=== PATIENT | female | born 1970 | race Caucasian/White ===

== ENCOUNTER 2017-03-30 05:55 | Day surgery (SDC) | payer OTHER ==
[~2017-03-30 05:55] MED LIST: LACTATED RINGER'S 1,000 ML IV*
[2017-03-30] MEDS ORDERED: ATROPINE 1 MG/10 ML SYRINGE IV (06:30)
[2017-03-30] MEDS ORDERED: MIDAZOLAM 1 MG/ML 2 ML INJ IV (06:30)
[2017-03-30] MEDS ORDERED: HYDROmorphONE (0.2 MG/ML) 10ML SYG IV ×3 (06:30)
[2017-03-30] MEDS ORDERED: hydrALAzine 20 MG INJ IV (06:30)
[2017-03-30] MEDS ORDERED: EPHEDrine SULFATE 50 MG/5 ML SYG IV (06:30)
[2017-03-30] MEDS ORDERED: MEPERIDINE 25 MG INJ IV (06:30)
[2017-03-30] MEDS ORDERED: FENTAnyl 50 MCG/ML VIAL IV (06:30)
[2017-03-30] MEDS ORDERED: OXYCODONE/ACETAMINOPHEN (5/325) TAB PO ×2 (06:30)
[2017-03-30] MEDS ORDERED: LABETALOL HCL 20MG INJ IV (06:30)
[2017-03-30] MEDS ORDERED: DIPHENHYDRAMINE 50 MG INJ IV (06:30)
[2017-03-30] MEDS ORDERED: morphine (1 MG/ML) 10ML SYRINGE IV ×3 (06:30)
[2017-03-30] MEDS ORDERED: GLYCOPYRROLATE 1 MG INJ (06:31)
[2017-03-30] MEDS ORDERED: LIDOCAINE 2% (SDV) 5 ML INJ (06:31)
[2017-03-30] MEDS ORDERED: FENTAnyl 50 MCG/ML VIAL (06:32)
[2017-03-30] MEDS ORDERED: ROCURONIUM 50 MG INJ (06:32)
[2017-03-30] MEDS ORDERED: NEOSTIGMINE 3 MG/3 ML SYRINGE (06:32)
[2017-03-30] MEDS ORDERED: PROPOFOL 20 ML (06:32)
[2017-03-30] MEDS ORDERED: MIDAZOLAM 1 MG/ML 2 ML INJ (06:32)
[2017-03-30] MEDS ORDERED: DEXAMETHASONE 4 MG/ML 1 ML INJ (06:32)
[2017-03-30] MEDS ORDERED: ONDANSETRON 4 MG INJ (06:33)
[2017-03-30] MEDS ORDERED: SUCCINYLCHOLINE CHLORIDE 100 MG/5 ML SYG IV (07:00)
[2017-03-30] MEDS ORDERED: CEFAZOLIN 1 GM INJ (07:00)
[2017-03-30] MEDS ORDERED: LABETALOL HCL 20MG INJ (08:11)
[2017-03-30] MEDS ORDERED: ALBUTEROL 0.083% (NEB) 2.5 MG/3 ML AMP (09:02)
[2017-03-30] MEDS: FENTAnyl 50 MCG/ML VIAL IV ×2 (09:11→09:36)
[2017-03-30] MEDS: ONDANSETRON 4 MG INJ IV (09:11)
[2017-03-30] MEDS: ALBUTEROL 0.083% (NEB) 2.5 MG/3 ML AMP HHN (09:19)
== END 2017-03-30 11:03 | disposition home or self-care (01) ==
LOC: SDS 05:55
DX: N92.0 Excessive and frequent menstruation with regular cycle (principal); E11.9 Type 2 diabetes mellitus without complications; I10 Essential (primary) hypertension; E78.5 Hyperlipidemia, unspecified; E66.01 Morbid (severe) obesity due to excess calories; Z68.41 Body mass index [BMI] 40.0-44.9, adult
CPT/HCPCS: 58558; 82962; 86850; 86900; 86901; 88305; 94664

== ENCOUNTER 2017-05-10 21:08 | Emergency (ER) | payer OTHER ==
[2017-05-11] MEDS: morphine 4 MG/ML VIAL IV (01:23)
[2017-05-11] MEDS: ONDANSETRON 4 MG INJ IV (01:23)
[2017-05-11] MEDS: SOD CHLORIDE 0.9% 1,000 ML IV (01:23)
[2017-05-11 01:53] LABS: ADD MAN DIFF? NO
[2017-05-11 01:55] LABS: WHITE BLOOD COUNT 10.7 10^3/ul (4.8-10.8)
[2017-05-11 01:55] LABS: ABNORMAL IP MESSAGE 1; BASOPHILS % 0.4 % (0.0-2.0); EOSINOPHILS # 0.1 10^3/ul (0.0-0.5); EOSINOPHILS % 1.1 % (0.0-7.0); HEMATOCRIT 27.6 % (37.0-47.0); HEMOGLOBIN 7.3 g/dl (12.0-16.0); LYMPHOCYTES # 2.7 10^3/ul (0.8-2.9); MEAN CORPUSCULAR HGB CONC 26.4 g/dl (32.0-37.0); MEAN CORPUSCULAR VOLUME 60.7 fl (82.0-101.0); MONOCYTE # 0.5 10^3/ul (0.3-0.9); MONOCYTES % 4.5 % (0.0-11.0); NEUTROPHIL # 7.4 10^3/ul (1.6-7.5); NEUTROPHILS % 68.6 % (39.0-77.0); NUCLEATED RED BLOOD CELLS% 0.2 /100WBC (0.0-0.0); PLATELET COUNT 284 10^3/UL (140-415); RED BLOOD COUNT 4.55 10^6/ul (4.20-5.40); RED CELL DISTRIBUTION WIDTH 19.2 % (11.5-14.5)
[2017-05-11 01:57] LABS: POSITIVE DIFF @See below
[2017-05-11 02:12] LABS: ASPARTATE AMINO TRANSFERASE 16 IU/L (15-46); BLOOD UREA NITROGEN 14 mg/dl (7-20); CHLORIDE 103 mmol/L (97-110); POTASSIUM 4.3 mmol/L (3.5-5.1); SODIUM 143 mmol/L (135-144)
[2017-05-11 02:31] LABS: ALANINE AMINOTRANSFERASE 25 IU/L (13-69); ALBUMIN 4.9 g/dl (3.3-4.9); ALBUMIN/GLOBULIN RATIO 1.48; ALKALINE PHOSPHATASE 117 IU/L (42-121); ANION GAP 21 (8-16); BILIRUBIN,INDIRECT 0.1 mg/dl (0-1.1); BILIRUBIN,TOTAL 0.1 mg/dl (0.2-1.3); CALCIUM 9.3 mg/dl (8.4-10.2); CARBON DIOXIDE 23 mmol/L (21-31); CREATININE 0.64 mg/dl (0.44-1.00); GLUCOSE 158 mg/dl (70-220); LIPASE 86 U/L (23-300); TOTAL PROTEIN 8.2 g/dl (6.1-8.1)
[2017-05-11 03:21] LABS: ADD UMIC NO; UR ASCORBIC ACID NEGATIVE (NEGATIVE); UR BILIRUBIN (Dip) NEGATIVE (NEGATIVE); UR BLOOD (Dip) NEGATIVE (NEGATIVE); UR CLARITY CLEAR (CLEAR); UR COLOR YELLOW (YELLOW); UR GLUCOSE (Dip) 1+ mg/dL (NEGATIVE); UR KETONES (Dip) NEGATIVE (NEGATIVE); UR LEUKOCYTE ESTERASE (Dip) NEGATIVE Leu/ul (NEGATIVE); UR NITRITE (Dip) NEGATIVE (NEGATIVE); UR SPECIFIC GRAVITY (Dip) 1.013 (1.003-1.030); UR TOTAL PROTEIN (Dip) NEGATIVE (NEGATIVE); UR UROBILINOGEN (Dip) NEGATIVE (NEGATIVE)
[2017-05-11] MEDS: PANTOPRAZOLE 40 MG INJ IV (04:44)
== END 2017-05-11 04:56 | disposition home or self-care (01) ==
LOC: FTE 21:08
DX: K29.50 Unspecified chronic gastritis without bleeding (principal); I10 Essential (primary) hypertension; E11.9 Type 2 diabetes mellitus without complications; Z79.84 Long term (current) use of oral hypoglycemic drugs
CPT/HCPCS: 36415; 74176; 80053; 81003; 83690; 85025; 96374; 96375; 99285-25